=== PATIENT | male | born 1965 | race Caucasian/White ===

== ENCOUNTER 2017-07-26 00:51 | Emergency (ER) | payer BC, OTHER ==
[~2017-07-26] VITALS: Ht 177.8 cm; Wt 80.0 kg
[2017-07-26 00:57] VITALS: TEMP 36.6; Ht 177.8 cm; Wt 80.0 kg
[2017-07-26] MEDS ORDERED: SULF800T23 PO (01:09)
[2017-07-26] MEDS ORDERED: BCTROWC EXT (01:09)
[2017-07-26] MEDS ORDERED: CEPHALEXIN MONOHYDRATE 250 MG CAP PO ONE (01:15)
[2017-07-26] MEDS ORDERED: CLINDAMYCIN IV 900 MG in DEXTROSE 5% 100ML 100 ML IV ONE (01:15)
[2017-07-26] MEDS ORDERED: CEPH500C PO (01:25)
--- NOTE | 2017-07-26 01:26 | EMERGENCY ROOM VISIT NOTE ---
History Report prepared by Jose: Flaco Breen Under the Supervision of: Dr. Kofi Hodges D.O. First contact with patient: 01:05 Chief Complaint: WOUND INFECTION Stated Complaint: SORE ON HAND AND HIP History of Present Illness The patient is a 52 year old male who presents to the Emergency Room with complaints of two sites of redness/erythema that he first noticed around 1 week ago. The patient has an area of swelling at the base of the left pointer finger , and over the right hip. The patient went to [facility] yesterday and was started on Bactrim. The at bedside notes that the finger is visibly worse than it was yesterday. The patient noted that he had similar episodes 4 years ago and was treated with Rifampin and Keflex, which improved the condition. The patient denies any recent fevers. Source of History: patient Onset: 1 week ago Position: finger(s) (Left pointer), other (right hip) Quality: other (swelling/erythema) Timing: worsening Associated Symptoms: No fevers Review of Systems See HPI for pertinent positives & negatives. A total of 10 systems reviewed and were otherwise negative. Past Medical & Surgical No histories. Family History Patient reports no known family medical history. Social History Smoking Status: Current Every Day Smoker Alcohol Use: none Drug Use: none Marital Status: Housing Status: lives with family Occupation Status: employed Current/Historical Medications Scheduled Cephalexin Monohydrate (Keflex), 500 MG PO QID Mupirocin (Bactroban 2% Oint), 1 APPLN EXT BID Sulfa/Trimethoprim (Bactrim Ds 800MG/160MG), 1 TAB PO BID Allergies Coded Allergies: No Known Allergies (Unverified , 07/26/17) Physical Exam Vital Signs Date Time Temp Pulse Resp B/P (MAP) Pulse Ox O2 Delivery O2 Flow Rate FiO2 07/26/17 00:57 36.6 75 18 132/84 98 Room Air Physical Exam CONSTITUTIONAL/VITAL SIGNS: Reviewed / noted above. GENERAL: Non-toxic in appearance. INTEGUMENTARY: Warm, dry, and [place]. HEAD: Normocephalic. EYES: without scleral icterus or trauma. ENT/OROPHARYNX: clear and moist. LYMPHADENOPATHY/NECK: Is supple without lymphadenopathy or meningismus. RESPIRATORY: Lungs clear and equal. CARDIOVASCULAR: Regular rate and rhythm. GI/ABDOMEN: Soft and nontender. No organomegaly or pulsatile mass. No rebound or guarding. Normal bowel sounds. EXTREMITIES: Warm and well perfused. BACK: No CVA tenderness. NEUROLOGICAL: Intact without focal deficits. SKIN: Some erythema noted in the left dorsal hand, just proximal to the 2nd PIP joint area and extending towards the let thumb. There is also a raised erythematous region in the right groin, that is indurated without fluctuance, but tender to palpation; 3-4 cm in diameter. PSYCHIATRIC: normal affect. MUSCULOSKELETAL: Normally developed with good muscle tone. Medical Decision & Procedures Medications Administered Medications (Trade) Dose Ordered Sig/Ailyn Route Start Time Stop Time Status Last Admin Dose Admin Clindamycin Phosphate 900 mg/ Dextrose 106 ml @ 100 mls/hr ONE ONCE IV 07/26/17 01:15 07/26/17 02:18 07/26/17 01:25 100 MLS/HR Cephalexin Monohydrate (Keflex Cap) 500 mg NOW ONCE PO 07/26/17 01:15 07/26/17 01:16 DC 07/26/17 01:23 500 MG ED Course 0105: Previous medical records were reviewed. The patient was evaluated in room B9. A complete history and physical examination was performed. 0115: Ordered Keflex Cap 500 mg PO, Clindamycin 106 @ 100 mL/hr IV. 0131: On reevaluation, the patient is resting in bed. I discussed the results and findings with the patient. He verbalized agreement of the treatment plan. The patient was discharged home. Medical Decision Differential diagnosis: Etiologies such as cellulitis, abscess, MRSA infection, DVT, necrotizing fasciitis, dermatitis, drug eruption, as well as others were entertained.. This is a 52-year-old male who presents to the ED with a chief complaint of infection. The patient states that he has had an ongoing infection in his right groin as well as left hand for about a week. He was seen at an urgent care center and started on Bactrim yesterday. Because of some increased symptoms, he was referred here for evaluation. His exam as noted above. He has some erythema to the dorsal left hand on the ulnar side between the first and second digits. There is no evidence of abscess in this area. There is no significant edema of the digits. The patient also has a raised erythematous region in the right groin that does not appear to be abscessed although early abscesses likely. It is indurated but not fluctuant. The patient was given IV dose of clindamycin here. He was also given oral Keflex and will continue the Bactrim that he has already started. He has seen Dr. Obando for similar symptoms in the past. I did recommend following up with Dr. Obando this week. He will call tomorrow for an appointment. Medication Reconcilliation Current Medication List: was personally reviewed by me Blood Pressure Screening Patient's blood pressure: Normal blood pressure Impression Primary Impression: Cellulitis Scribe Attestation The scribe's documentation has been prepared under my direction and personally reviewed by me in its entirety. I confirm that the note above accurately reflects all work, treatment, procedures, and medical decision making performed by me. Departure Information Dispostion Home / Self-Care Prescriptions Cephalexin Monohydrate (Keflex) 500 Mg Cap 500 MG PO QID, #40 CAP Prov: Kofi Hodges, D.O. 07/26/17 Referrals No Doctor, Assigned (PCP) Christophe Obando MD Patient Instructions My [facility] Additional Instructions Keflex as prescribed. Continue Bactrim. Call Dr. Obando's office tomorrow and schedule follow-up this week. Use warm compresses to the right groin area.
[2017-07-26 02:14] VITALS: BP 121/80; PULSE 70; O2SAT 99
--- NOTE | 2017-07-30 14:37 | EDITING REQUIRED CODING QUERY ---
CODING QUERY To promote full compliance with coding requirements relating to patient care, provider participation is requested in all cases of anime artist uncertainty. Please assist us with the question(s) below: Coding Question(s): Does the patient have cellulitis in the hand and groin? Physician's Response(s): no Thank you Zora Christos Principal Diagnosis: "_that condition established after study, to be chiefly responsible for occasioning the admission of the patient to the hospital for care." Co-Existing Principal Diagnosis: "_when two or more diagnoses equally meet the criteria for principal diagnosis as determined by the circumstances of admission, diagnostic work up, and/or therapy provided, and the Alphabetic Index, Tabular List, or another coding guideline does not provide sequencing direction, any one of the diagnoses may be sequenced first." "When the physician has documented what appears to be a current diagnosis in the body of the record, but has not included the diagnosis in the final diagnostic statement, the physician should be asked whether the diagnosis should be added." (Source Coding [facility] 2 QTR90. p3-4)
== END 2017-07-26 02:15 | disposition home or self-care (01) ==
LOC: C.EDB 00:51
DX: L53.8 Other specified erythematous conditions (principal); R23.4 Changes in skin texture; R10.31 Right lower quadrant pain; F17.200 Nicotine dependence, unspecified, uncomplicated